=== PATIENT | male | born 1965 | race Two or more races ===

== ENCOUNTER 2024-09-04 08:25 | Outpatient (AMB) | payer MEDICAID, SELFPAY ==
[2024-09-04 09:16] VITALS: BP 146/83; PULSE 65; RESP 19; TEMP 36.7; O2SAT 97; BMI 36.2
--- NOTE | 2024-09-04 09:16 | PD.ORTHCLVIS ---
Vital signs 09/04/24 09:16 Height 1.7 m Height Method Stated Weight 104.893 kg Weight Measurement Method Standing Scale BMI 36.2 BP 146/83 H Blood Pressure Source Automatic Cuff Blood Pressure Location Right Upper Arm Position Sitting Respiration 19 Pulse 65 Pulse Source Monitor Temp 98.0 F Temp Source Temporal Artery Scan Pulse Oximetry (%) 97 Oxygen Delivery Method Room Air Med/Allergies Allergies & Medications Allergies hydrocortisone Allergy (Intermediate, Verified 09/04/24 09:18) HIVES Medication Reconciliation No Known Home Medications 09/04/24 [History Confirmed 09/04/24] Exam Exam Patient is in no acute distress and is cooperative with the examination today. Breathing is nonlabored. In no respiratory distress. Patient has no paraspinal tenderness. Spinal deformity cannot be appreciated. The gait of the patient is nonantalgic Bilateral extremities were evaluated and demonstrates sensation intact to light touch. Palpable pedal pulses are present. No significant edema is present. Bilateral knees were examined and the patient has full strength and range of motion.. The right hip was examined. Patient was able to flex to 90 degrees, adduct to 30 degrees, abduct to 40 degrees, internally rotate to 20 degrees, and externally rotate to 20 degrees. Patient has a positive logroll The left hip was examined. Patient was able to flex to 90 degrees, adduct to 30 degrees, abduct to 40 degrees, internally rotate to 20 degrees, and externally rotate to 20 degrees. Patient has a positive logroll Bilateral hip x-rays from [facility] were reviewed. Demonstrates complete joint space moderation with significant osteophytes. His spine looks like it is fused but I can only see a portion of it Assessment and Plan Problem List (1) Bilateral hip joint arthritis: Status: Acute Plan: Left feels a pleasant 59-year-old male with bilateral hip pain and bilateral hip arthritis. He had prior fusions in the past. He seems a little confused. We discussed bilateral total hip replacement. He would like bilateral hip injections first. We also sent a prescription for anti-inflammatories. We will see how this goes. I have a feeling that he may have ankylosing spondylitis looking at the x-rays. I will take a better look with new films of the spine and hip Office Procedures GNS Level of Care Nursing/Assessment Patient Status: Initial/New Patient Nursing Assessment/Reassesment: Medication Reconciliation, Update PMH in EMR and Vital Signs Coordination of Care: Complex Care and Chronic Disease 1-5, Education Complex Pt/Fam, Consent,records obtained, informed consent, 1 Ins Authorization, Results/Orders obtained and Staff clarify orders Special Needs: Language special needs New Patient Charge New Patient Point Assignment: 1109 New Patient Point Charge: [employer] EXPERT Level 3 ([id number]) MA Intake Visit Data Collection New Patient or Established: New Patient (never been to [facility]) Reason for Visit:: HIP PAIN Seen by Clinical Staff ONLY (RN/MA): No Verbal consent obtained for Telemed visit?: No Research Biologist Required: Yes PCP or OBGYN visit in last 3 months: Yes Hx Now: No Do You Feel Safe at Home: Yes Authorities Contacted: N/A Questionairres Past Medical History Past Medical History Have you ever been diagnosed with any of the following: Respiratory Problems Smoking: No Smoking Cessation Counseling: No Smoking Exposure: No Musculoskeletal Problems Arthritis: Yes Subjective Visit Visit for: new patient and hip Immunization / Flu Flu Vaccine in the Last 12 Months: No Flu Vaccine Exclusion Criteria: No Exclusion Criteria History of Present Illness Chief complaint: Bilateral hip pain Imani is a pleasant 59-year-old male with bilateral hip pain. He has a history of multiple spine surgeries x 3. He ultimately had his hardware removed. He seems very surprised that he has bad hip arthritis. He is using a cane and the pain is affecting his quality life and happiness Personal History Occupation: DISABLED Red flag PMH: BMI and none BMI Counceling provided: Yes Pain Pain level (0-10): 8 Pain duration: ALL DAY Pain location: inside (medial), outside (lateral), anterior and posterior Pain quality: sharp, dull and aching Pain timing: increases with activity Associated signs & symptoms: numbness, weakness and stiffness Ambulatory data Ambulatory device: cane Treatments Improvement with previous injections: No Improvement with PT: No Improvement with NSAIDS: no Review of Systems Review of Systems: All systems negative unless otherwise noted in HPI.
== END 2024-09-04 09:49 | disposition home or self-care (01) ==
PROVIDERS: PCP Family Medicine; Referring Provider Family Medicine; Supervising Provider Orthopaedic Surgery Adult Reconstructive Orthopaedic Surgery; Visit Provider Orthopaedic Surgery Adult Reconstructive Orthopaedic Surgery
DX: M16.0 Bilateral primary osteoarthritis of hip (principal); M25.552 Pain in left hip; M25.551 Pain in right hip
CPT/HCPCS: 99203; G0463

== ENCOUNTER → 2024-09-04 | Outpatient (CLI) | payer MEDICAID, SELFPAY ==
--- NOTE | 2024-09-04 | XR_ITS ---
Examination: Lumbar spine 3 views Technique one AP lateral coned lateral lower lumbar spine 3 views Exam date and time: September 04, 2024 1109 hours INDICATIONS: Low back pain 20 years, history back surgery 12 years ago. FINDINGS: Prominent lumbar spondylosis Lumbar fusion L5-S1 with satisfactory alignment No lumbar fracture Mild disc narrowing L1-L2, L2-L3 IMPRESSION: Lumbar fusion L5-S1 with satisfactory alignment Prominent lumbar spondylosis
--- NOTE | 2024-09-04 10:22 | XR_ITS ---
Examination: Bilateral hips, AP pelvis, 5 views Technique: AP, lateral views both hips, AP pelvis, 5 views Exam date and time: September 04, 2024 1102 hours INDICATIONS: Bilateral hip pain 10 years injury at work today at 20 years ago. FINDINGS: Bilateral advanced hip osteoarthritis, severe involving the right hip No hip fractures or dislocations Moderate osteopenia Bones of the pelvis intact IMPRESSION: Bilateral advanced hip osteoarthritis, severe osteoarthritis involving the right hip
== END | disposition home or self-care (01) ==
PROVIDERS: PCP Family Medicine; Referring Provider Orthopaedic Surgery Adult Reconstructive Orthopaedic Surgery; Visit Provider Orthopaedic Surgery Adult Reconstructive Orthopaedic Surgery
DX: M16.0 Bilateral primary osteoarthritis of hip (principal); M47.816 Spondylosis without myelopathy or radiculopathy, lumbar region; M43.27 Fusion of spine, lumbosacral region
CPT/HCPCS: 72100; 73523

== ENCOUNTER → 2024-09-26 | Outpatient (CLI) | payer MEDICAID, SELFPAY ==
--- NOTE | 2024-09-26 13:00 | XR_ITS ---
Examination: Steroid injection left hip joint with imaging guidance Fluoroscopy AP left hip single view. Exam date and time: September 26, 2024 1323 hours INDICATIONS: Significant left hip osteoarthritis left hip joint pain months Informed consent provided. Technique: A timeout was completed verifying correct patient, procedure, site, positioning. The patient was placed in supine position appropriate for the steroid injection The patient's site was prepped and draped in sterile fashion 5 cc 1% lidocaine administered locally for anesthesia. Sterile drape applied, maximum barrier sterile technique. Utilizing fluoroscopic guidance, 23-gauge needle placed in the left hip joint 1 cc Kenalog 40 in 5 cc 0.25% Marcaine introduced into the left hip joint The patient was in satisfactory and stable condition on completion of the procedure Attending radiologist was present for the entire procedure Estimated blood loss 0 cc. Impression: Successful steroid injection left hip joint with imaging guidance Fluoroscopy 0.1 minute radiation dose 3.12 milligray 1 spot fluoroscopic left hip film AP left hip films single view .
--- NOTE | 2024-09-26 13:00 | XR_ITS ---
Examination: Steroid injection right hip joint with imaging guidance Fluoroscopy AP right hip single view INDICATIONS: Right hip advanced osteoarthritis hip pain months. Exam date and time: September 26, 2024 1335 hours Informed consent provided. Technique: A timeout was completed verifying correct patient, procedure, site, positioning. The patient was placed in supine position appropriate for the steroid injection The patient's site was prepped and draped in sterile fashion 5 cc 1% lidocaine administered locally for anesthesia. Sterile drape applied, maximum barrier sterile technique. Utilizing fluoroscopic guidance, 23-gauge needle placed in the right hip joint 1 cc Kenalog 40 in 5 cc 0.25% Marcaine introduced into the right hip joint The patient was in satisfactory and stable condition on completion of the procedure Attending radiologist was present for the entire procedure Estimated blood loss 0 cc. Impression: Successful steroid injection right hip joint with imaging guidance Fluoroscopy 0.1 minute radiation dose 3.12 milligray 1 spot fluoroscopic AP right hip film .
== END | disposition home or self-care (01) ==
LOC: SIRX 12:13
PROVIDERS: Referring Provider Orthopaedic Surgery Adult Reconstructive Orthopaedic Surgery; Visit Provider Orthopaedic Surgery Adult Reconstructive Orthopaedic Surgery
DX: M16.0 Bilateral primary osteoarthritis of hip (principal)
CPT/HCPCS: 20610; 77002